=== PATIENT | female | born 1945 | race Caucasian/White ===

== ENCOUNTER 2024-08-21 18:08 | Inpatient (IN) | payer OTHER, MEDICAID ==
[~2024-08-21] VITALS: Ht 162.6 cm; Wt 67.6 kg
[2024-08-21] MEDS: NALOXONE HCL 1MG/ML 2ML VIAL IV ONE (18:28)
[2024-08-21] MEDS: ONDANSETRON HCL 4MG/2ML INJ IV ONE (18:28)
[2024-08-21] MEDS: SODIUM CHLORIDE 0.9% 1,000 ML IV ONE ×2 (18:28→18:47)
[2024-08-21 18:36] LABS: CHLORIDE 105 mEq/L (98-107); SODIUM 139 mEq/L (136-145)
[2024-08-21 18:37] LABS: CARBON DIOXIDE 23 mEq/L (21-32)
[2024-08-21 18:38] LABS: CALCIUM 8.8 mg/dL (8.7-10.4)
[2024-08-21 18:42] LABS: CREATININE 0.8 mg/dL (0.6-1.0); GLUCOSE 128 mg/dL (70-105)
[2024-08-21 18:43] LABS: TROPONIN I HIGH SENSITIVITY 6 ng/L (3.0-34); UREA NITROGEN BLOOD 14 mg/dL (9-23)
[2024-08-21 18:44] LABS: BG CARBOXYHEMOGLOBIN 0.3 % (0.5-1.5); BG DEOXYHEMOGLOBIN 2.1 % (0.0-5.0); BG FRACTION INSPIRED OXYGEN 100; BG HCO3 ACT 20.2 mmol/L (21.0-28.0); BG METHEMOGLOBIN 0.4 % (0.5-1.5); BG OXYGEN SATURATION 97.9 % (94.0-98.0); BG OXYHEMOGLOBIN 97.2 % (94.0-98.0); BG PCO2 33.4 mmHg (32.0-45.0); BG PH 7.399 (7.350-7.450); BG PO2 113.5 mmHg (83.0-108.0); BG SAMPLE SITE RIGHT BRACHIAL; BG TOTAL HEMOGLOBIN 9.3 g/dL (12.0-16.0); BG VENT MODE MASK - NRB
[2024-08-21 18:44] LABS: ACETAMINOPHEN < 2 ug/mL (10-30)
[2024-08-21 18:45] LABS: ETHANOL BLOOD < 10 mg/dL (<10)
[2024-08-21 18:46] LABS: BASOPHILS % 0.3 % (0.0-2.0); HEMATOCRIT. 30.5 % (36.0-48.0); LYMPHOCYTES % 3.8 % (20.0-50.0); MEAN CORPUSCULAR HEMOGLOBIN 28.4 pg (28.0-32.0); MEAN CORPUSCULAR HGB CONC 32.7 g/dL (31.0-37.0); MEAN CORPUSCULAR VOLUME 86.8 fL (81.0-99.0); MONOCYTES % 7.1 % (2.0-8.0); NEUTROPHILS % 88.8 % (40.0-76.0); PLATELET 308 x1000/uL (130-400); RED BLOOD CELL COUNT 3.51 mill/uL (4.2-5.4); RED CELL DISTRIBUTION WIDTH 14.8 % (11.6-14.6); WHITE BLOOD COUNT 14.1 x1000/uL (4.5-11.0)
[2024-08-21 18:47] LABS: DIFFERENTIAL COMMENT 1
[2024-08-21 18:58] LABS: PROTHROMBIN TIME 11.1 sec (9.6-11.0)
[2024-08-21] MEDS: CEFTRIAXONE 1GM/50ML 50 ML IV ONE (19:50)
[2024-08-21] MEDS: KCL 20MEQ/100ML PREMIX 100 ML IV SCH (20:35)
[2024-08-21] MEDS ORDERED: ACETAMINOPHEN 325MG TABLET PO PRN ×2 (23:00)
[2024-08-21] MEDS ORDERED: GUAIFENESIN 200MG/10ML SUGAR FREE UDC PO PRN (23:00)
[2024-08-21] MEDS ORDERED: DOCUSATE SODIUM 100MG CAPSULE PO PRN (23:00)
[2024-08-21] MEDS ORDERED: IPRATROPIUM/ALBUTEROL 0.5-3(2.5)MG/3ML NEB HHN PRN (23:00)
[2024-08-21] MEDS: FUROSEMIDE 40MG/4ML VIAL IVP NR (23:00)
[2024-08-21] MEDS ORDERED: MAGNESIUM/ALUMINUM HYDROXIDE/SIMETHICONE 30ML UDC PO PRN (23:00)
[2024-08-21] MEDS ORDERED: ONDANSETRON HCL 4MG/2ML INJ IV PRN (23:00)
[2024-08-21] MEDS ORDERED: DEXTROSE 50% WATER 50ML SYRINGE IV PRN (23:15)
[2024-08-22] VITALS (7 sets, daily range): BP systolic 135–170; BP diastolic 69–83; PULSE 79–94; RESP 13–18; TEMP 36.6–36.7; O2SAT 95–100
[2024-08-22] MEDS: POTASSIUM CHLORIDE 20MEQ TABLET SR PO NR (00:32)
[2024-08-22] MEDS: PREDNISONE 20MG TABLET PO SCH (00:32)
[2024-08-22 01:26] LABS: IRON 17 ug/dL (50-170)
[2024-08-22 01:29] LABS: PHOSPHORUS 3.1 mg/dL (2.5-4.9); TOTAL IRON BINDING CAPACITY 331 ug/dl (250-425)
[2024-08-22 01:33] LABS: FERRITIN 55 ng/mL (10-291); VITAMIN B12 SERUM 211 pg/mL (211-911)
[2024-08-22] MEDS ORDERED: NON FORMULARY MED XX SCH (06:30)
[2024-08-22] MEDS: MAGNESIUM 4 G PREMIX 100 ML IV NR (06:55)
[2024-08-22] MEDS: IPRATROPIUM/ALBUTEROL 0.5-3(2.5)MG/3ML NEB HHN SCH (08:02)
[2024-08-22 08:10] LABS: HEMATOCRIT. 27.4 % (36.0-48.0); MEAN CORPUSCULAR HEMOGLOBIN 28.5 pg (28.0-32.0); MEAN CORPUSCULAR HGB CONC 32.9 g/dL (31.0-37.0); MEAN CORPUSCULAR VOLUME 86.9 fL (81.0-99.0); MEAN PLATELET VOLUME 6.7 fl (7.4-10.4); PLATELET 259 x1000/uL (130-400); RED BLOOD CELL COUNT 3.15 mill/uL (4.2-5.4); RED CELL DISTRIBUTION WIDTH 15.4 % (11.6-14.6)
[2024-08-22 08:13] LABS: DIFFERENTIAL COMMENT 1
[2024-08-22 08:18] LABS: CHLORIDE 110 mEq/L (98-107); SODIUM 141 mEq/L (136-145)
[2024-08-22 08:19] LABS: CALCIUM 8.4 mg/dL (8.7-10.4); CARBON DIOXIDE 24 mEq/L (21-32)
[2024-08-22] MEDS: INSULIN LISPRO 100 UNITS/ML SUBCUT SCH ×2 (08:20→22:24)
[2024-08-22 08:24] LABS: CREATININE 0.8 mg/dL (0.6-1.0); GLUCOSE 102 mg/dL (70-105); TRIGLYCERIDE 85 mg/dL (0-150); UREA NITROGEN BLOOD 15 mg/dL (9-23)
[2024-08-22 08:25] LABS: CREATINE KINASE MB FRACTION 0.7 ng/mL (0.5-3.6); LDL CHOLESTEROL 41 mg/dL (5-100)
[2024-08-22 08:26] LABS: CHOLESTEROL 103 mg/dL (<200); HDL CHOLESTEROL 31 mg/dL (>65)
[2024-08-22 08:30] LABS: T4 FREE 1.19 ng/dL (0.89-1.76); THYROID STIMULATING HORMONE 0.82 uIU/mL (0.55-4.78)
[2024-08-22] MEDS ORDERED: FERROUS SULFATE 325MG TABLET PO SCH (09:00)
[2024-08-22] MEDS: BLOOD SUGAR DIAGNOSTIC STRIP TEST SCH (09:07)
[2024-08-22 09:11] LABS: POTASSIUM 5.2 mEq/L (3.5-5.1)
[2024-08-22] MEDS: IRON SUCROSE COMPLEX 100 MG/5 ML ML IV SCH (09:50)
[2024-08-22] MEDS: LORATADINE 10MG TABLET PO SCH (09:50)
[2024-08-22] MEDS: PANTOPRAZOLE SODIUM 40 MG/VIAL IV SCH (09:51)
[2024-08-22] MEDS: ENOXAPARIN 40MG/0.4ML SYR SUBCUT SCH (09:51)
[2024-08-22 10:22] LABS: POTASSIUM 4.8 mEq/L (3.5-5.1)
[2024-08-22] MEDS ORDERED: CEFEPIME 1GM IN DEXT 5% 50ML IV SCH (18:45)
[2024-08-22] MEDS: LISINOPRIL 5MG TABLET PO SCH (18:46)
[2024-08-22 19:30] LABS: CREATINE KINASE MB FRACTION 1.2 ng/mL (0.5-3.6)
[2024-08-22] MEDS: ENOXAPARIN 30MG/0.3ML SYR SUBCUT SCH (19:32)
[2024-08-22] MEDS: AZITHROMYCIN 500MG/250ML 250 ML IV SCH (19:32)
[2024-08-22 19:46] LABS: HEPATITIS B SURFACE ANTIGEN NEGATIVE (Negative)
[2024-08-22] MEDS ORDERED: CEFTRIAXONE 1GM/50ML 50 ML IV SCH (20:00)
[2024-08-22 20:07] LABS: HEPATITIS C AB NON REACTIVE (Neg) (Negative)
[2024-08-22 21:32] LABS: INFLUENZA TYPE A Presumptive Negative (Pres. Neg.)
[2024-08-22 21:33] LABS: INFLUENZA TYPE B Presumptive Negative (Pres. Neg.)
[2024-08-22 21:34] LABS: RESPIRATORY SYNCYTIAL VIRUS Not Detected (Not Detectd)
[2024-08-22] MEDS: ATORVASTATIN CALCIUM 20MG TABLET PO SCH (21:36)
[2024-08-22] MEDS: CLONIDINE 0.1MG TABLET PO PRN (21:47)
[2024-08-22] MEDS: CEFEPIME 2GM/50ML DUPLEX 50 ML IV SCH (21:50)
[2024-08-22] MEDS ORDERED: CEFEPIME 2GM PREMIX 100ML IV SCH (22:00)
[2024-08-23] VITALS (11 sets, daily range): BP systolic 120–156; BP diastolic 52–70; PULSE 74–88; RESP 17–20; TEMP 36.7–37.1; O2SAT 95–100
[2024-08-23 06:56] LABS: CHLORIDE 107 mEq/L (98-107); POTASSIUM 4.6 mEq/L (3.5-5.1); SODIUM 140 mEq/L (136-145)
[2024-08-23 06:58] LABS: CALCIUM 8.4 mg/dL (8.7-10.4); CARBON DIOXIDE 23 mEq/L (21-32); HEMOGLOBIN 8.6 g/dL (12.0-16.0); MEAN CORPUSCULAR HEMOGLOBIN 28.4 pg (28.0-32.0); MEAN CORPUSCULAR HGB CONC 33.1 g/dL (31.0-37.0); MEAN CORPUSCULAR VOLUME 85.9 fL (81.0-99.0); PLATELET 263 x1000/uL (130-400); RED BLOOD CELL COUNT 3.03 mill/uL (4.2-5.4); RED CELL DISTRIBUTION WIDTH 15.4 % (11.6-14.6); WHITE BLOOD COUNT 11.8 x1000/uL (4.5-11.0)
[2024-08-23 07:03] LABS: CREATININE 0.9 mg/dL (0.6-1.0); GLUCOSE 280 mg/dL (70-105)
[2024-08-23 07:04] LABS: UREA NITROGEN BLOOD 22 mg/dL (9-23)
[2024-08-23 07:05] LABS: ALANINE AMINOTRANSFERASE 9 IU/L (10-49); ALBUMIN 3.2 g/dL (3.2-4.8); ASPARTATE AMINOTRANSFERASE 11 IU/L (<34)
[2024-08-23 07:06] LABS: BILIRUBIN TOTAL 0.3 mg/dL (0.1-1.0); PROTEIN TOTAL 6.3 g/dL (6.0-8.3)
[2024-08-23 07:44] LABS: ANISOCYTOSIS 1+; PLATELET ESTIMATE NORMAL
[2024-08-23] MEDS: LEVOTHYROXINE SODIUM 25MCG TABLET PO SCH (08:11)
[2024-08-23] MEDS: INSULIN GLARGINE 100 UNITS/ML SUBCUT SCH (09:11)
[2024-08-23] MEDS: CEFEPIME 2GM/50ML DUPLEX 50 ML IV SCH (17:03)
[2024-08-23] MEDS ORDERED: EMPA10TA PO (19:03)
[2024-08-23] MEDS ORDERED: ATOR40TA70 PO (19:03)
[2024-08-23] MEDS ORDERED: METF-1150 PO (19:03)
[2024-08-23] MEDS ORDERED: HUM100IN SQ ×2 (19:03→19:04)
[2024-08-23] MEDS ORDERED: BENA-8 PO (19:03)
[2024-08-23] MEDS ORDERED: MELA1TAB28 MT (19:03)
[2024-08-23] MEDS ORDERED: LEVO25TA7 PO (19:03)
[2024-08-23] MEDS ORDERED: TOPUD PO (19:03)
== END 2024-08-23 19:36 | disposition home or self-care (01) | DRG 637 ==
LOC: ER 18:08 → MICUSO 21:36 → EDBEDREQSVC 08-22 08:53 → 7WST 08-22 13:33
PROVIDERS: ADMIT Hospitalist; ATTEND Hospitalist
DX: E11.649 Type 2 diabetes mellitus with hypoglycemia without coma (principal); G93.41 Metabolic encephalopathy; J69.0 Pneumonitis due to inhalation of food and vomit; J96.01 Acute respiratory failure with hypoxia; E87.6 Hypokalemia; E03.9 Hypothyroidism, unspecified; D64.9 Anemia, unspecified; T38.3X5A Adverse effect of insulin and oral hypoglycemic [antidiabetic] drugs, initial encounter; B96.89 Other specified bacterial agents as the cause of diseases classified elsewhere; I50.9 Heart failure, unspecified; I11.0 Hypertensive heart disease with heart failure; Y92.89 Other specified places as the place of occurrence of the external cause; Z79.4 Long term (current) use of insulin
CPT/HCPCS: 36415; 36600; 71045; 71250; 74176; 80048; 80053; 80061; 80307; 80320; 80329; 82375; 82550; 82553; 82607; 82728; 82746; 82805; 82962; 83036; 83540; 83550; 83605; 83735; 83880; 84100; 84132; 84145; 84439; 84443; 84481; 84484; 85025; 85027; 85379; 86705; 86850; 86900; 87077; 87186; 87340; 87420; 87804; 93005; 93970; 94070; 94640; 97162; 97166; 97535; 99291; A4606; J0456; J0692; J0696; J1650; J1815; J2310; J2405; J2470; J3475; J3480; J7030; J7512; G0480